=== PATIENT | male | born 1965 | race Caucasian/White ===

== ENCOUNTER → 2022-04-15 09:24 | Outpatient (CLI) | payer BC, SELFPAY ==
[2022-04-15 09:59] LABS: Add Manual Diff / Slide Review NO; Basophils Absolute Auto 0 /uL (0-100); Basophils Percent Auto 0.7 % (0-2); Eosinophils Absolute Auto 200 /uL (0-450); Eosinophils Percent Auto 2.7 % (2-4); Hematocrit 40.5 % (41-53); Hemoglobin 13.5 g/dL (13.5-17.5); Lymphocytes Absolute Auto 1800 /uL (1100-4500); Lymphocytes Percent Auto 28.2 % (25-40); Mean Corpuscular HGB Conc 33.3 % (30-36); Mean Corpuscular Hemoglobin 32.4 PG (26-34); Mean Corpuscular Volume 97.1 fL (80-100); Monocytes Absolute Auto 700 /uL (0-900); Neutrophils Absolute Auto 3700 /uL (1500-7000); Neutrophils Percent Auto 57.4 % (50-75); Platelet Count 200 X10^3/uL (150-400); Red Blood Cell Count 4.17 X10^6/uL (4.5-5.9); Red Cell Distribution Width 12.6 % (11.6-14.8); White Blood Cell Count 6.4 X10^3/uL (4.5-11.0)
[2022-04-15 10:11] LABS: Alanine Aminotransferase 41 IU/L (<50); Albumin 4.3 g/dL (3.5-5.0); Albumin Globulin Ratio 1.5 (1.0-2.8); Alkaline Phosphatase 73 U/L (38-126); Aspartate Aminotransferase 29 IU/L (17-59); BUN Creatinine Ratio 22.8 (6-22); Bilirubin Total 0.7 mg/dL (0.2-1.3); Blood Urea Nitrogen 18 mg/dL (9-20); Carbon Dioxide 26 mmol/L (22-32); Chloride 104 mmol/L (98-107); Cholesterol 135 mg/dL (140-199); Estimated Glomerular Filt Rate > 60 mL/min (>60); Globulin 2.9 g/dL (1.7-4.1); Glucose 105 mg/dL (70-100); HDL Cholesterol 38 mg/dL (40-60); HEMOLYSIS < 15 (0-50); LDL Cholesterol Calculated 74 mg/dL (<100); Potassium 4.7 mmol/L (3.4-5.1); Sodium 140 mmol/L (137-145); Total Protein 7.2 g/dL (6.3-8.2); Triglycerides 115 mg/dL (35-150)
[2022-04-15 10:12] LABS: Hemoglobin A1C% w Est Avg Glu 5.5 % (4.0-6.0)
[2022-04-15 10:36] LABS: Creatinine Urine Random 107.4 mg/dL
[2022-04-15 10:38] LABS: Microalbumin Urine Random < 0.6 mg/dL (0-1.6)
[2022-04-15 10:41] LABS: TSH w/ Reflex to FT4 0.96 uIU/mL (0.47-4.68)
== END ==
PROVIDERS: PCP Family Medicine; Referring Provider Family Medicine; Visit Provider Family Medicine
DX: E78.5 Hyperlipidemia, unspecified (principal); I10 Essential (primary) hypertension
CPT/HCPCS: 36415; 80053; 80061; 82043; 82570; 83036; 84443; 85025

== ENCOUNTER → 2023-07-13 09:13 | Outpatient (CLI) | payer OTHER, SELFPAY ==
[2023-07-13 10:04] LABS: Add Manual Diff / Slide Review NO; Basophils Absolute Auto 100 /uL (0-100); Basophils Percent Auto 0.9 % (0-2); Eosinophils Absolute Auto 100 /uL (0-450); Eosinophils Percent Auto 2.1 % (2-4); Hematocrit 40.6 % (41-53); Hemoglobin 13.8 g/dL (13.5-17.5); Lymphocytes Absolute Auto 1600 /uL (1100-4500); Lymphocytes Percent Auto 26.6 % (25-40); Mean Corpuscular Hemoglobin 32.6 PG (26-34); Mean Corpuscular Volume 95.8 fL (80-100); Monocytes Absolute Auto 600 /uL (0-900); Monocytes Percent Auto 10.4 % (3-14); Neutrophils Absolute Auto 3600 /uL (1500-7000); Platelet Count 213 X10^3/uL (150-400); Red Blood Cell Count 4.24 X10^6/uL (4.5-5.9); Red Cell Distribution Width 12.9 % (11.6-14.8)
[2023-07-13 10:25] LABS: Alanine Aminotransferase 51 IU/L (<50); Albumin 4.1 g/dL (3.5-5.0); Albumin Globulin Ratio 1.3 (1.0-2.8); Alkaline Phosphatase 70 U/L (38-126); Aspartate Aminotransferase 35 IU/L (17-59); BUN Creatinine Ratio 23.6 (6-22); Bilirubin Total 0.6 mg/dL (0.2-1.3); Blood Urea Nitrogen 17 mg/dL (9-20); Calcium 8.8 mg/dL (8.4-10.2); Carbon Dioxide 24 mmol/L (22-32); Chloride 105 mmol/L (98-107); Cholesterol 127 mg/dL (140-199); Estimated Glomerular Filt Rate > 60 mL/min (>60); Globulin 3.2 g/dL (1.7-4.1); Glucose 99 mg/dL (70-100); HDL Cholesterol 30 mg/dL (40-60); HEMOLYSIS < 15 (0-50); LDL Cholesterol Calculated 77 mg/dL (<100); Potassium 4.6 mmol/L (3.4-5.1); Sodium 137 mmol/L (137-145); Total Protein 7.3 g/dL (6.3-8.2); Triglycerides 98 mg/dL (35-150)
[2023-07-13 10:54] LABS: Prostate Specific Antigen Scrn 1.23 ng/mL (0.1-4.0)
[2023-07-13 10:58] LABS: TSH w/ Reflex to FT4 0.95 uIU/mL (0.47-4.68)
[2023-07-13 11:30] LABS: Creatinine Urine Random 56.1 mg/dL
[2023-07-13 11:36] LABS: Microalbumin Urine Random < 0.6 mg/dL (0-1.6)
[2023-07-14 12:09] LABS: x Labcorp Estim. Avg Glu (eAG) 111 mg/dL (.); x Labcorp Hemoglobin A1c 5.5 % (4.8-5.6)
== END ==
PROVIDERS: PCP Family Medicine; Referring Provider Family Medicine; Visit Provider Family Medicine
DX: E78.5 Hyperlipidemia, unspecified (principal); I10 Essential (primary) hypertension; Z12.5 Encounter for screening for malignant neoplasm of prostate
CPT/HCPCS: 36415; 80053; 80061; 82043; 82570; 83036; 84443; 85025; G0103

== ENCOUNTER → 2023-08-18 08:31 | Outpatient (CLI) | payer OTHER, SELFPAY ==
--- NOTE | 2023-08-18 | DI.MRI.S_ITS ---
PROCEDURE: MR FEMUR RT WO CON INDICATIONS: right hamstring tear TECHNIQUE: Noncontrast coronal and sagittal T1 spin echo and STIR; axial T1 spin echo and T2 fast spin echo with fat saturation through the right thigh. COMPARISON: None. FINDINGS: Image quality: Excellent. Bones: The visualized bone marrow demonstrates normal signal on all sequences. The overlying cortex appears intact. No fractures lines or intra-osseous lesions. Soft tissues: There is full-thickness rupture involving common origin of right semitendinosis and biceps femorals tendon at right ischial tuberosity with up to 3 cm distal retraction of torn tendon fibers and moderate amount of surrounding fluid extending to musculotendinous junction. Low-grade partial-thickness tear involving origin of right semimembranosus tendon is also noted. No other muscle or tendon signal abnormalities. No soft tissue mass or drainable fluid collection. IMPRESSION: 1. Full-thickness rupture involving common tendon origin of right semitendinosis and biceps femorals tendons at right ischial tuberosity with up to 3 cm distal retraction of torn tendon fibers and moderate amount of surrounding fluid extending to the musculotendinous junction. 2. Low-grade partial-thickness tear involving right semimembranosus tendon origin at ischial tuberosity. 3. No other muscle or tendon signal abnormalities. 4. No marrow edema. No fracture or dislocation. No suspicious bony lesions. Dictated by: Umesh Barfield M.D. on 08/18/2023 at 10:59 Approved by: Umesh Barfield M.D. on 08/18/2023 at 11:28
--- NOTE | 2023-08-18 | DI.US.S_ITS ---
PROCEDURE: US ABDOMEN LIMITED INDICATIONS: UMBILICAL LUMP; HX HERNIA REPAIR TECHNIQUE: Real-time focused scanning was performed of the abdomen, with image documentation. COMPARISON: None. FINDINGS: Targeted ultrasound of the umbilicus demonstrates fat containing periumbilical hernia measuring 2.3 x 1.3 x 1.8 centimeter. IMPRESSION: Fat containing periumbilical hernia measuring 2.3 x 1.3 x 1.8 centimeter. Dictated by: Carlos Negrete M.D. on 08/18/2023 at 11:19 Approved by: Carlos Negrete M.D. on 08/18/2023 at 11:19
== END ==
LOC: US 08:32
PROVIDERS: PCP Family Medicine; Referring Provider Family Medicine; Visit Provider Family Medicine
DX: K42.9 Umbilical hernia without obstruction or gangrene (principal); S76.311A Strain of muscle, fascia and tendon of the posterior muscle group at thigh level, right thigh, initial encounter; X58.XXXA Exposure to other specified factors, initial encounter
CPT/HCPCS: 73718; 76705

== ENCOUNTER → 2023-09-13 15:12 | Outpatient (CLI) | payer OTHER, SELFPAY ==
[2023-09-13 15:41] LABS: Add Manual Diff / Slide Review NO; Basophils Absolute Auto 100 /uL (0-100); Basophils Percent Auto 0.5 % (0-2); Eosinophils Absolute Auto 100 /uL (0-450); Eosinophils Percent Auto 1.3 % (2-4); Hematocrit 38.8 % (41-53); Hemoglobin 13.3 g/dL (13.5-17.5); Lymphocytes Absolute Auto 1800 /uL (1100-4500); Lymphocytes Percent Auto 18.5 % (25-40); Mean Corpuscular HGB Conc 34.3 % (30-36); Mean Corpuscular Hemoglobin 33.3 PG (26-34); Mean Corpuscular Volume 97.2 fL (80-100); Monocytes Absolute Auto 1000 /uL (0-900); Monocytes Percent Auto 10.8 % (3-14); Neutrophils Absolute Auto 6600 /uL (1500-7000); Neutrophils Percent Auto 68.9 % (50-75); Platelet Count 199 X10^3/uL (150-400); Red Blood Cell Count 3.99 X10^6/uL (4.5-5.9); Red Cell Distribution Width 12.9 % (11.6-14.8); White Blood Cell Count 9.6 X10^3/uL (4.5-11.0)
[2023-09-13 15:55] LABS: Alanine Aminotransferase 41 IU/L (<50); Albumin 4.5 g/dL (3.5-5.0); Albumin Globulin Ratio 1.5 (1.0-2.8); Alkaline Phosphatase 82 U/L (38-126); Aspartate Aminotransferase 28 IU/L (17-59); BUN Creatinine Ratio 22.9 (6-22); Bilirubin Total 0.6 mg/dL (0.2-1.3); Blood Urea Nitrogen 19 mg/dL (9-20); C-Reactive Protein Quant 2.1 mg/dL (<1.0); Calcium 9.2 mg/dL (8.4-10.2); Carbon Dioxide 28 mmol/L (22-32); Chloride 106 mmol/L (98-107); Estimated Glomerular Filt Rate > 60 mL/min (>60); Globulin 3.1 g/dL (1.7-4.1); Glucose 107 mg/dL (70-100); HEMOLYSIS < 15 (0-50); Potassium 4.2 mmol/L (3.4-5.1); Sodium 139 mmol/L (137-145); Total Protein 7.6 g/dL (6.3-8.2)
[2023-09-13 16:04] LABS: Erythrocyte Sedimentation Rate 12 MM/HR (0-15)
== END ==
PROVIDERS: PCP Family Medicine; Referring Provider Physician Assistant Medical; Visit Provider Physician Assistant Medical
DX: L03.90 Cellulitis, unspecified (principal)
CPT/HCPCS: 36415; 80053; 85025; 85651; 86140

== ENCOUNTER → 2023-09-17 10:06 | Outpatient (CLI) | payer OTHER, SELFPAY ==
[2023-09-17 10:55] LABS: Uric Acid 6.6 mg/dL (3.5-8.5)
== END ==
PROVIDERS: PCP Family Medicine; Referring Provider Nurse Practitioner Family; Visit Provider Nurse Practitioner Family
DX: M79.671 Pain in right foot (principal)
CPT/HCPCS: 36415; 84550

== ENCOUNTER → 2023-09-17 12:30 | Outpatient (CLI) | payer OTHER, SELFPAY ==
--- NOTE | 2023-09-17 12:31 | DI.US.S_ITS ---
PROCEDURE: US PERIPH VENOUS LOW EXTREM RT INDICATIONS: Right leg swelling TECHNIQUE: Real-time imaging, as well as color and pulse Doppler interrogation, were performed of the lower extremity deep veins from the inguinal ligament to the popliteal fossa, with documentation of the visualized calf veins. COMPARISON: None. FINDINGS: The common femoral, femoral, popliteal, and the visualized calf veins are normally compressible, and free of intraluminal thrombus. Color and pulse Doppler demonstrate normal phasic intraluminal flow. There is normal augmentation response to distal compression maneuver. IMPRESSION: Negative right lower extremity duplex venous ultrasound for DVT. Dictated by: Juan Troy M.D. on 09/17/2023 at 13:31 Approved by: Juan Troy M.D. on 09/17/2023 at 13:32
== END ==
PROVIDERS: PCP Family Medicine; Referring Provider Nurse Practitioner Family; Visit Provider Nurse Practitioner Family
DX: M79.89 Other specified soft tissue disorders (principal); M79.671 Pain in right foot
CPT/HCPCS: 36415; 84550; 93971

== ENCOUNTER 2023-09-20 17:51 | Emergency (ER) | payer OTHER, SELFPAY ==
[2023-09-20] VITALS (10 sets, daily range): BP systolic 146–184; BP diastolic 76–96; PULSE 52–80; RESP 16; TEMP 36.5; O2SAT 92–100; BMI 35.2
--- NOTE | 2023-09-20 19:17 | DI.RAD.S_ITS ---
PROCEDURE: XR FOOT RT MIN 3V INDICATIONS: swelling/pain TECHNIQUE: 3 views of the foot were acquired. COMPARISON: None. FINDINGS: Bones: Age-indeterminate tiny bone fragment adjacent to the 1st MTP. Mild 1st MTP degenerative changes. No acute displaced fracture or dislocation. Soft tissues: No suspicious calcifications. Soft tissue swelling is present. IMPRESSION: Mild degenerative changes of the 1st MTP, tiny adjacent age-indeterminate bone fragment. No acute abnormality identified. Soft tissue swelling is present. If there is high concern for further derangement, consider MRI evaluation. Dictated by: Kian Roberson M.D. on 09/20/2023 at 20:08 Approved by: Kian Roberson M.D. on 09/20/2023 at 20:08
--- NOTE | 2023-09-20 19:18 | DI.RAD.S_ITS ---
PROCEDURE: XR ANKLE RT MIN 3V INDICATIONS: swelling/pain TECHNIQUE: 3 views of the ankle were acquired. COMPARISON: None. FINDINGS: Bones: No displaced fracture. No dislocation. The ankle mortise appears intact. Soft tissues: Diffuse soft tissue swelling is present. IMPRESSION: No acute osseous abnormality. There is soft tissue swelling. If there is high concern for further derangement, consider MRI evaluation. Dictated by: Kian Roberson M.D. on 09/20/2023 at 20:07 Approved by: Kian Roberson M.D. on 09/20/2023 at 20:07
[2023-09-20 20:21] LABS: Add Manual Diff / Slide Review NO; Basophils Absolute Auto 100 /uL (0-100); Basophils Percent Auto 1.1 % (0-2); Eosinophils Absolute Auto 100 /uL (0-450); Eosinophils Percent Auto 0.7 % (2-4); Hematocrit 39.9 % (41-53); Hemoglobin 13.3 g/dL (13.5-17.5); Lymphocytes Absolute Auto 2900 /uL (1100-4500); Lymphocytes Percent Auto 22.1 % (25-40); Mean Corpuscular HGB Conc 33.3 % (30-36); Mean Corpuscular Hemoglobin 32.2 PG (26-34); Mean Corpuscular Volume 96.8 fL (80-100); Monocytes Absolute Auto 1200 /uL (0-900); Monocytes Percent Auto 9.1 % (3-14); Neutrophils Absolute Auto 8800 /uL (1500-7000); Platelet Count 245 X10^3/uL (150-400); Red Blood Cell Count 4.12 X10^6/uL (4.5-5.9); Red Cell Distribution Width 12.8 % (11.6-14.8); White Blood Cell Count 13.2 X10^3/uL (4.5-11.0)
[2023-09-20 20:28] LABS: Prothrombin Time 11.6 SECONDS (9.4-12.5)
[2023-09-20 20:30] LABS: PTT Partial Thromboplastin Tim 31 SECONDS (25.1-36.5)
[2023-09-20 20:32] LABS: Lactate (Lactic Acid) 1.2 mmol/L (0.7-2.1)
[2023-09-20 20:33] LABS: Alanine Aminotransferase 54 IU/L (<50); Albumin 4.6 g/dL (3.5-5.0); Albumin Globulin Ratio 1.4 (1.0-2.8); Alkaline Phosphatase 85 U/L (38-126); Aspartate Aminotransferase 36 IU/L (17-59); BUN Creatinine Ratio 30.1 (6-22); Bilirubin Total 0.5 mg/dL (0.2-1.3); Blood Urea Nitrogen 22 mg/dL (9-20); Calcium 9.3 mg/dL (8.4-10.2); Carbon Dioxide 28 mmol/L (22-32); Chloride 106 mmol/L (98-107); Estimated Glomerular Filt Rate > 60 mL/min (>60); Globulin 3.2 g/dL (1.7-4.1); Glucose 102 mg/dL (70-100); HEMOLYSIS 28 (0-50); Lipase 57 U/L (23-300); Sodium 141 mmol/L (137-145); Total Protein 7.8 g/dL (6.3-8.2)
[2023-09-20 20:50] LABS: Procalcitonin < 0.03 ng/mL (<0.5)
[2023-09-20] MEDS: SODIUM CHLORIDE 0.9% 1,000 ML 1000 ML IV (22:08)
--- NOTE | 2023-09-20 22:12 | ED.EXTPRO ---
HPI - Extremity Problem General Chief complaint: Extremity Problem,Nontraumatic Stated complaint: foot infection Time Seen by Provider: 09/20/23 21:29 Source: patient and family Mode of arrival: Ambulatory History of Present Illness HPI Narrative: 58yoM presents for R foot/ankle pain and swelling x 1 week, not improving. Patient denies known trauma, injury. He states that he went to a walk-in clinic and was given a prescription of doxycycline for ccellulitis on 09/12. He returned on 09/16 stating no improvement. Uric acid level was normal and he was DC'd with rx of prednisone for possible gout. He also underwent vascular ultrasound that was negative for DVT. Patient returns today for continued pain, swelling, and no improvement despite 1 week of antibiotics. Related Data Previous Rx's Medication Instructions Recorded atorvastatin 40 mg tablet 40 mg PO ONCE PM #90 tabs 08/10/23 benazepril 40 mg tablet 40 mg PO DAILY #90 tabs 08/10/23 doxycycline hyclate 100 mg capsule 100 mg PO BID #20 caps 09/13/23 prednisone 20 mg tablet 40 mg (2 x 20 mg) PO DAILY #6 tabs 09/17/23 colchicine 0.6 mg tablet 0.6 mg PO DAILY #10 tabs 09/20/23 tramadol 50 mg tablet 50 mg PO Q8H PRN pain #10 tabs 09/20/23 Allergies Allergy/AdvReac Type Severity Reaction Status Date / Time No Known Drug Allergies Allergy Verified 09/17/23 09:44 Review of Systems Review of Systems Narrative: See HPI Patient History Medical History HSV (herpes simplex virus) infection Hyperlipidemia Hypertension Surgical History Anesthesia Fracture of hook process of hamate of left wrist (~2001) H/O lateral meniscus repair of left knee (~2008) H/O lateral meniscus repair of left knee (~2007) S/P rotator cuff repair (~2003) History of umbilical hernia repair (~04/2021) Family History Father Colon cancer Heart disease Hyperlipidemia Hypertension Mother Stomach cancer Grandfather Stroke Grandmother Cancer Grandfather Cancer Grandmother Cancer Social History Smoking Status: Never smoker Smoking Status: Never smoker Substance Use Type: marijuana Exam Initial Vital Signs Initial Vital Signs: Vital Signs Temperature 97.7 F 09/20/23 18:33 Pulse Rate 65 09/20/23 18:33 Respiratory Rate 16 09/20/23 18:33 Blood Pressure 151/90 H 09/20/23 18:33 Pulse Oximetry 99 09/20/23 18:33 Oxygen Delivery Method Room Air 09/20/23 18:33 Const: Awake, alert, no acute distress, nontoxic appearing MSK: Atraumatic, full range of motion, pulses equal Skin: Erythema and warmth of right foot, particularly at 1st MTP joint and ankle Neuro: AO x3, CN II-XII grossly intact, moves all extremities Course Orders Ordered: Discontinued Medications Diphenhydramine HCl (Diphenhydramine 50 Mg/Ml Vial) 50 mg IV NOW ONE Stop: 09/20/23 22:55 Last Admin: 09/20/23 23:02 Dose: 50 mg Documented By: AB Sodium Chloride (Normal Saline 0.9%) 1,000 mls @ 1,000 mls/hr IV BOLUS ONE Stop: 09/20/23 20:15 Last Infusion: 09/20/23 23:25 Dose: Infused Documented By: Admin: 09/20/23 22:08 Dose: 1,000 mls/hr Documented By: AB Ketorolac Tromethamine (Ketorolac 30 Mg/Ml Vial) 15 mg IV NOW ONE Stop: 09/20/23 22:13 Last Admin: 09/20/23 22:35 Dose: 15 mg Documented By: AB Morphine Sulfate (Morphine 4 Mg/Ml Inj) 4 mg IV NOW ONE Stop: 09/20/23 22:13 Last Admin: 09/20/23 22:35 Dose: 4 mg Documented By: AB Ondansetron HCl (Ondansetron 4 Mg/2 Ml Inj) 4 mg IV NOW PRN PRN Reason: Nausea And Vomiting Ondansetron HCl (Ondansetron 4 Mg Odt) 4 mg SL NOW PRN PRN Reason: Nausea And Vomiting Vital Signs Vital signs: Vital Signs - 8 hr 09/20/23 18:33 Temperature 97.7 F Pulse Rate 65 Respiratory Rate 16 Blood Pressure 151/90 H Pulse Oximetry 99 Oxygen Delivery Method Room Air MDM - Extremity (Nontraumatic) Differential Diagnosis Differential diagnosis: Likely gout, cellulitis and superficial thrombophlebitis Lab Data 09/20/23 20:02 09/20/23 20:02 Labs: Lab Results 09/20/23 09/20/23 Range/Units 19:17 20:02 WBC 13.2 H (4.5-11.0) X10^3/uL RBC 4.12 L (4.5-5.9) X10^6/uL Hgb 13.3 L (13.5-17.5) g/dL Hct 39.9 L (41-53) % MCV 96.8 (80-100) fL MCH 32.2 (26-34) PG MCHC 33.3 (30-36) % RDW 12.8 (11.6-14.8) % Plt Count 245 (150-400) X10^3/uL Neut % (Auto) 67.0 (50-75) % Lymph % (Auto) 22.1 L (25-40) % Dukes % (Auto) 9.1 (3-14) % Eos % (Auto) 0.7 L (2-4) % Baso % (Auto) 1.1 (0-2) % Neut # (Auto) 8800 H (9924-3593) /uL Lymph # (Auto) 2900 (3596-3635) /uL Dukes # (Auto) 1200 H (0-900) /uL Eos # (Auto) 100 (0-450) /uL Baso # (Auto) 100 (0-100) /uL ESR 1 (0-15) MM/HR PT 11.6 (9.4-12.5) SECONDS INR 1.0 (0.9-1.3) APTT 31 (25.1-36.5) SECONDS Sodium 141 (137-145) mmol/L Potassium 4.0 (3.4-5.1) mmol/L Chloride 106 (98-107) mmol/L Carbon Dioxide 28 (22-32) mmol/L BUN 22 H (9-20) mg/dL Creatinine 0.73 (0.66-1.25) mg/dL Estimated GFR > 60 (>60) mL/min BUN/Creatinine Ratio 30.1 H (6-22) Glucose 102 H (70-100) mg/dL Lactate 1.2 (0.7-2.1) mmol/L Uric Acid 6.3 (3.5-8.5) mg/dL Calcium 9.3 (8.4-10.2) mg/dL Total Bilirubin 0.5 (0.2-1.3) mg/dL AST 36 (17-59) IU/L ALT 54 H (<50) IU/L Alkaline Phosphatase 85 (38-126) U/L C-Reactive Protein 0.9 (<1.0) mg/dL Total Protein 7.8 (6.3-8.2) g/dL Albumin 4.6 (3.5-5.0) g/dL Globulin 3.2 (1.7-4.1) g/dL Albumin/Globulin Ratio 1.4 (1.0-2.8) Lipase 57 (23-300) U/L Procalcitonin < 0.03 < 0.03 (<0.5) ng/mL Urine Dip Bedside Urine Glucose Negative Bedside Urine Bilirubin - Negative Bedside Urine Ketone - Negative Urine Specific Gillett 1.030 Bedside Urine Occult Blood - Negative Bedside Urine pH 6.0 Bedside Urine Protein - Negative Bedside Urine Urobilinogen - Negative Bedside Urine Nitrite - Negative Bedside Urine Leukocytes - Negative Esterase Imaging Data Extremity x-ray #1: Radiologist's Impression: PROCEDURE: XR FOOT RT MIN 3V INDICATIONS: swelling/pain TECHNIQUE: 3 views of the foot were acquired. COMPARISON: None. FINDINGS: Bones: Age-indeterminate tiny bone fragment adjacent to the 1st MTP. Mild 1st MTP degenerative changes. No acute displaced fracture or dislocation. Soft tissues: No suspicious calcifications. Soft tissue swelling is present. IMPRESSION: Mild degenerative changes of the 1st MTP, tiny adjacent age-indeterminate bone fragment. No acute abnormality identified. Soft tissue swelling is present. If there is high concern for further derangement, consider MRI evaluation. Dictated by: Kian Roberson M.D. on 09/20/2023 at 20:08 Approved by: Kian Roberson M.D. on 09/20/2023 at 20:08 Extremity x-ray #2: Radiologist's Impression: PROCEDURE: XR ANKLE RT MIN 3V INDICATIONS: swelling/pain TECHNIQUE: 3 views of the ankle were acquired. COMPARISON: None. FINDINGS: Bones: No displaced fracture. No dislocation. The ankle mortise appears intact. Soft tissues: Diffuse soft tissue swelling is present. IMPRESSION: No acute osseous abnormality. There is soft tissue swelling. If there is high concern for further derangement, consider MRI evaluation. Dictated by: Kian Roberson M.D. on 09/20/2023 at 20:07 Approved by: Kian Roberson M.D. on 09/20/2023 at 20:07 [facility] Narrative Medical decision making narrative: Persistent pain and swelling of right 1st MTP joint and ankle. No response to antibiotics. Patient denies a known injury or nidus of infection, suspect cellulitis to be a less likely diagnosis at this point. Laboratory work ordered, x-ray imaging of foot and ankle ordered. Patient's pain and distribution of symptoms is very consistent with gout, despite normal uric acid levels. Laboratory work reviewed, WBC count 13.2, hemoglobin 13.3, platelets 245. Patient recently completed a very short course of steroids and this is likely secondary to recent prednisone use. CRP 0.9, procalcitonin undetectable, sed rate 1. Laboratory work indicates much less likely to be sepsis or bacterial in nature. Since patient has failed antibiotics he was recommended to follow a gout diet and we will start colchicine. Patient was counseled on appropriate foods to follow for this diet and recommended close monitoring with PCP Discharge Plan Departure Patient Disposition: Home Clinical Impression: Gout Instructions: DI for Gout Activity Restrictions/Additional Instructions: Your laboratory work indicates that this is not a bacterial infection. Although your uric acid level was normal we will try to treat this as gout to see if this improves your swelling and symptoms. Follow a gout diet and take the prescribed medications. Follow up with your primary care physician Prescriptions: New colchicine 0.6 mg tablet 0.6 mg PO DAILY Qty: 10 0RF Rx Instructions: Take 1.2mg once and then 0.6mg 1 hour later tramadol 50 mg tablet 50 mg PO Q8H PRN (Reason: pain) Qty: 10 0RF No Action prednisone 20 mg tablet 40 mg PO DAILY Qty: 6 0RF doxycycline hyclate 100 mg capsule 100 mg PO BID Qty: 20 0RF atorvastatin 40 mg tablet 40 mg PO ONCE PM Qty: 90 3RF benazepril 40 mg tablet 40 mg PO DAILY Qty: 90 3RF Referrals: Ryland Harris MD [Primary Care Provider] - Stand Alone Forms: Patient Portal/API
[2023-09-20 22:30] LABS: Uric Acid 6.3 mg/dL (3.5-8.5)
[2023-09-20] MEDS: MORPHINE 4 MG/ML INJ IV (22:35)
[2023-09-20] MEDS: KETOROLAC 30 MG/ML VIAL 15 MG IV (22:35)
[2023-09-20] MEDS: diphenhydrAMINE 50 MG/ML VIAL IV (23:02)
[2023-09-20 23:35] LABS: C-Reactive Protein Quant 0.9 mg/dL (<1.0)
[2023-09-20 23:36] LABS: Erythrocyte Sedimentation Rate 1 MM/HR (0-15)
[2023-09-20 23:48] LABS: Procalcitonin < 0.03 ng/mL (<0.5)
[2023-09-21] VITALS: BP 156/84; PULSE 55; O2SAT 92
[2023-09-21 00:12] VITALS: BP 156/84; PULSE 62; RESP 15; O2SAT 94
== END 2023-09-21 00:13 | disposition home or self-care (01) ==
PROVIDERS: Emergency Provider Emergency Medicine; PCP Family Medicine
DX: M10.9 Gout, unspecified (principal)
CPT/HCPCS: 36415; 73610; 73630; 80053; 81003; 83605; 83690; 84145; 84550; 85025; 85610; 85651; 85730; 86140; 87040; 96374; 96375; 99284; J1200; J1885; J2270

== ENCOUNTER → 2023-09-24 11:53 | Outpatient (CLI) | payer OTHER, SELFPAY ==
[2023-09-24 12:46] LABS: Add Manual Diff / Slide Review NO; Basophils Absolute Auto 100 /uL (0-100); Basophils Percent Auto 1.2 % (0-2); Eosinophils Absolute Auto 100 /uL (0-450); Eosinophils Percent Auto 1.8 % (2-4); Hematocrit 40.2 % (41-53); Hemoglobin 13.6 g/dL (13.5-17.5); Lymphocytes Absolute Auto 1900 /uL (1100-4500); Lymphocytes Percent Auto 24.7 % (25-40); Mean Corpuscular HGB Conc 33.8 % (30-36); Mean Corpuscular Hemoglobin 32.5 PG (26-34); Mean Corpuscular Volume 96.1 fL (80-100); Monocytes Absolute Auto 700 /uL (0-900); Monocytes Percent Auto 8.9 % (3-14); Neutrophils Absolute Auto 4900 /uL (1500-7000); Neutrophils Percent Auto 63.4 % (50-75); Platelet Count 241 X10^3/uL (150-400); Red Blood Cell Count 4.18 X10^6/uL (4.5-5.9); Red Cell Distribution Width 12.5 % (11.6-14.8); White Blood Cell Count 7.7 X10^3/uL (4.5-11.0)
[2023-09-24 13:08] LABS: Erythrocyte Sedimentation Rate 14 MM/HR (0-15)
[2023-09-24 13:32] LABS: C-Reactive Protein Quant 0.6 mg/dL (<1.0)
== END ==
PROVIDERS: PCP Family Medicine; Referring Provider Family Medicine; Visit Provider Family Medicine
DX: M10.9 Gout, unspecified (principal); L03.90 Cellulitis, unspecified
CPT/HCPCS: 36415; 85025; 85651; 86140

== ENCOUNTER → 2024-10-20 06:55 | Outpatient (CLI) | payer OTHER, SELFPAY ==
[2024-10-20 08:08] LABS: Creatinine Urine Random 89.68 mg/dL
[2024-10-20 08:19] LABS: Microalbumin Urine Random < 0.6 mg/dL (0-1.6)
[2024-10-20 08:21] LABS: Hematocrit 45.3 % (41-53); Hemoglobin 15.3 g/dL (13.5-17.5); Mean Corpuscular HGB Conc 33.8 % (30-36); Mean Corpuscular Hemoglobin 34.2 PG (26-34); Mean Corpuscular Volume 101.2 fL (80-100); Platelet Count 155 X10^3/uL (150-400); Red Blood Cell Count 4.47 X10^6/uL (4.5-5.9); Red Cell Distribution Width 12.9 % (11.6-14.8)
[2024-10-20 08:22] LABS: Add Manual Diff / Slide Review YES
[2024-10-20 08:33] LABS: Macrocytosis 2+; Neutrophils Absolute Manual 2900 /uL (3000-5900); Total Cells Counted 100
[2024-10-20 09:04] LABS: Alanine Aminotransferase 19 IU/L (<50); Albumin Globulin Ratio 1.5 (1.0-2.8); Alkaline Phosphatase 51 U/L (38-126); Aspartate Aminotransferase 25 IU/L (17-59); Bilirubin Total 0.3 mg/dL (0.2-1.3); Blood Urea Nitrogen 16 mg/dL (9-20); Calcium 8.7 mg/dL (8.4-10.2); Carbon Dioxide 29 mmol/L (22-32); Chloride 100 mmol/L (98-107); Cholesterol 151 mg/dL (140-199); Estimated Glomerular Filt Rate > 60 mL/min (>60); Globulin 2.6 g/dL (1.7-4.1); Glucose 89 mg/dL (70-99); HDL Cholesterol 35 mg/dL (40-60); HEMOLYSIS < 15 (0-50); LDL Cholesterol Calculated 104 mg/dL (<100); Potassium 4.3 mmol/L (3.4-5.1); Sodium 137 mmol/L (137-145); Total Protein 6.6 g/dL (6.3-8.2); Triglycerides 61 mg/dL (35-150); Uric Acid 5.9 mg/dL (3.5-8.5)
[2024-10-21 01:36] LABS: Apolipoprotein B 79 mg/dL (<90)
== END ==
PROVIDERS: PCP Family Medicine; Referring Provider Family Medicine; Visit Provider Family Medicine
DX: M10.9 Gout, unspecified (principal); E78.5 Hyperlipidemia, unspecified; I10 Essential (primary) hypertension
CPT/HCPCS: 36415; 80053; 80061; 82043; 82172; 82570; 84550; 85007; 85025

== ENCOUNTER → 2024-11-07 11:21 | Outpatient (CLI) | payer OTHER, SELFPAY ==
[2024-11-07 11:55] LABS: Add Manual Diff / Slide Review NO; Basophils Absolute Auto 0 /uL (0-100); Basophils Percent Auto 0.7 % (0-2); Eosinophils Absolute Auto 0 /uL (0-450); Eosinophils Percent Auto 0.7 % (2-4); Hematocrit 42.9 % (41-53); Hemoglobin 14.6 g/dL (13.5-17.5); Lymphocytes Absolute Auto 1200 /uL (1100-4500); Mean Corpuscular Hemoglobin 34.5 PG (26-34); Mean Corpuscular Volume 101.4 fL (80-100); Monocytes Absolute Auto 500 /uL (0-900); Monocytes Percent Auto 11.7 % (3-14); Neutrophils Absolute Auto 2800 /uL (1500-7000); Neutrophils Percent Auto 60.9 % (50-75); Platelet Count 178 X10^3/uL (150-400); Red Blood Cell Count 4.23 X10^6/uL (4.5-5.9); Red Cell Distribution Width 12.9 % (11.6-14.8); White Blood Cell Count 4.6 X10^3/uL (4.5-11.0)
[2024-11-07 13:46] LABS: Folate 6.6 ng/mL (2.76-20.0); Vitamin B12 Reflex MMA if <400 423 pg/mL (239-931)
== END ==
PROVIDERS: PCP Family Medicine; Referring Provider Family Medicine; Visit Provider Family Medicine
DX: Z00.00 Encounter for general adult medical examination without abnormal findings (principal); E78.5 Hyperlipidemia, unspecified; I10 Essential (primary) hypertension; D75.89 Other specified diseases of blood and blood-forming organs
CPT/HCPCS: 36415; 82607; 82746; 85025

== ENCOUNTER → 2024-12-08 14:59 | Outpatient (CLI) | payer OTHER, SELFPAY ==
--- NOTE | 2024-12-08 15:03 | DI.US.S_ITS ---
PROCEDURE: US ABDOMEN COMPLETE INDICATIONS: MACROCYTOSIS TECHNIQUE: Real-time scanning was performed of the abdominal and retroperitoneal organs, with image documentation. COMPARISON: [facility], , US ABDOMEN LIMITED, 08/18/2023, 8:50. FINDINGS: Liver: Liver is normal in size and homogeneous in echotexture. Gallbladder: Unremarkable. Biliary ducts: Intrahepatic bile ducts are non-dilated. Extrahepatic bile duct caliber measures 7.4 mm. Normal is 6-7 mm or less in diameter, or 10 mm or less post-cholecystectomy. Pancreas: Visualized portions of the pancreas are sonographically normal. Spleen: Spleen is normal in size and homogeneous in echotexture. It measures 9.4 cm Kidneys: Kidneys are normal in size and echotexture. Right kidney measures 11.6 cm long; left kidney measures 12.2 cm long. No hydronephrosis or nephrolithiasis. Bilateral simple cysts are present. The largest on the right measures 5.9 cm and the largest on the left measures 1.9 cm. Aorta: Visualized aorta is normal in caliber at less than 3 cm. Iliacs: Proximal common iliac arteries are normal in caliber at less than 2.5 cm. IVC: Intrahepatic inferior vena cava is patent. Miscellaneous: No free abdominal fluid. IMPRESSION: Bilateral simple renal cysts. Dictated by: Divina Pike M.D. on 12/10/2024 at 16:30 Approved by: Divina Pike M.D. on 12/10/2024 at 16:31
== END ==
LOC: US 15:02
PROVIDERS: PCP Family Medicine; Referring Provider Internal Medicine; Visit Provider Internal Medicine
DX: D75.89 Other specified diseases of blood and blood-forming organs (principal); N28.1 Cyst of kidney, acquired
CPT/HCPCS: 76700

== ENCOUNTER → 2024-12-19 07:06 | Outpatient (CLI) | payer OTHER, SELFPAY ==
[2024-12-19 07:33] LABS: Add Manual Diff / Slide Review NO; Hematocrit 41.9 % (41-53); Hemoglobin 14.4 g/dL (13.5-17.5); Lymphocytes Absolute Auto 1100 /uL (1100-4500); Mean Corpuscular HGB Conc 34.4 % (30-36); Mean Corpuscular Hemoglobin 34.6 PG (26-34); Mean Corpuscular Volume 100.6 fL (80-100); Platelet Count 154 X10^3/uL (150-400)
== END ==
PROVIDERS: PCP Family Medicine; Referring Provider Family Medicine; Visit Provider Internal Medicine
DX: D75.89 Other specified diseases of blood and blood-forming organs (principal); R53.83 Other fatigue; R68.82 Decreased libido
CPT/HCPCS: 36415; 84402; 84403; 85025